=== PATIENT | male | born 1985 | race African-American/Black ===

== ENCOUNTER → 2020-11-02 18:52 | Outpatient (CLI) | payer OTHER, SELFPAY ==
--- NOTE | 2020-11-02 | DI.MRI.S_ITS ---
PROCEDURE: MR KNEE LT WO CON INDICATIONS: pain in left knee TECHNIQUE: Noncontrast sagittal PD fast spin echo and T2 fast spin echo with fat saturation, sagittal 3-D FLASH with fat saturation; coronal T1 spin echo and PD fast spin echo with fat saturation, and axial PD fast spin echo with fat saturation through the knee. COMPARISON: None. FINDINGS: Image quality: Excellent. Menisci: The medial and lateral menisci demonstrate normal morphology and internal signal. The meniscal root ligaments appear intact. Cruciate ligaments: The anterior and posterior cruciate ligaments appear intact. Medial structures: The medial collateral ligament appears intact. The semimembranosus tendon insertions and meniscocapsular junction appear intact. Visualized portions of the pes anserinus tendons appear normal. No abnormal bursal fluid. Lateral structures: The lateral collateral ligament, long and short heads of the biceps femoris tendon appear intact. The popliteus tendon appears intact. No signs of posterolateral corner injury. Iliotibial band appears normal. Anterior structures: The quadriceps and patellar tendons appear intact. A mildly congenitally shallow trochlear groove is seen with lateral patellar tilting and mild lateral patellar subluxation. The tibial tubercle-trochlear groove distance is within normal limits. There is attenuation of the medial patellofemoral ligament near its femoral attachment and a small amount of edema superficial to the medial collateral ligament. Bones and cartilage: There is trace cortical irregularity and possible edema at the anterolateral aspect of the lateral femoral condyle and the odd facet of the patella that is suspicious for trabecular bone injury related to a prior episode of transient lateral patellar dislocation. The articular cartilages in the medial compartment are intact. There is shallow cartilage fissuring in the central lateral tibial plateau with focal high-grade partial-thickness cartilage loss at the posterior weight-bearing portion of the lateral tibial plateau with mild subchondral cystic changes. Focal grade 2-3 cartilage loss is seen at the lateral aspect of the lateral femoral trochlea. Joint space: There is a moderate to large joint effusion with mild synovial hypertrophy. A moderate medial popliteal cyst is seen with intracystic debris or synovial hypertrophy. A small amount of edema adjacent to the popliteal cyst may indicate a prior rupture. IMPRESSION: 1. Subtle mild trabecular bone injury at the inferomedial portion of the patella and the anterolateral portion of the lateral femoral condyle is suspicious for a prior episode of transient lateral patellar dislocation. 2. Attenuation of the medial patellofemoral ligament near its femoral attachment with adjacent soft tissue edema is suspicious for at least high-grade tearing. 3. 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 The tibial tubercle-trochlear groove distance is within normal limits. 4. 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 5. Intact cruciate and collateral ligaments. 6. Moderate to large joint effusion with mild synovial hypertrophy. 7. Moderate medial popliteal cyst with intracystic debris or synovial hypertrophy and signs of possible prior rupture. Dictated by: José Manuel Bird M.D. on 11/03/2020 at 8:49 Approved by: José Manuel Bird M.D. on 11/03/2020 at 9:08
== END ==
PROVIDERS: Referring Provider Student in an Organized Health Care Education/Training Program; Visit Provider Student in an Organized Health Care Education/Training Program
DX: M25.562 Pain in left knee (principal); S89.82XA Other specified injuries of left lower leg, initial encounter; M25.462 Effusion, left knee; M94.262 Chondromalacia, left knee; M25.862 Other specified joint disorders, left knee; M67.262 Synovial hypertrophy, not elsewhere classified, left lower leg
CPT/HCPCS: 73721

== ENCOUNTER → 2022-08-04 10:02 | Outpatient (CLI) | payer OTHER, SELFPAY ==
--- NOTE | 2022-08-04 | DI.MRI.S_ITS ---
PROCEDURE: MR WRIST RT WO CON INDICATIONS: right wrist pain TECHNIQUE: Noncontrast coronal proton density fast spin echo and T2 fast spin echo with fat saturation; coronal 3-D gradient echo, axial T1 spin echo and T2 fast spin echo with fat saturation, sagittal T1 spin echo through the wrist. COMPARISON: None. FINDINGS: Image quality: Excellent. Bones and cartilage: The carpal bones are normally aligned. There is mild marrow edema involving dorsal periphery of distal radius near Massiel's tubercle. No discrete fracture line is identified. No other area of abnormal marrow signal. No evidence for avascular necrosis. Overlying cartilage surfaces appear normal. Carpal ligaments: There is suggestion of full-thickness rupture involving dorsal and central components of scapholunate ligament. The lunotriquetral ligament is intact. On sagittal images, the pisohamate ligament appears intact. Triangular fibrocartilage complex: The triangular fibrocartilage appears intact. The adjacent meniscal homolog appears normal in the absence of intra-articular contrast. The extensor carpi ulnaris tendon is normal in location and morphology. Tendons and soft tissues: The carpal tunnel structures appear normal, including the median nerve. The ulnar nerve appears normal within Guyon's canal. Fluid is seen distending flexor carpi radialis tendon sheath at the level of radiocarpal joint extending to the level of distal carpal row. All six extensor tendon compartments demonstrate normal morphology, without pathologic tendon sheath fluid. Moderate amount of joint effusion is seen within wrist joints. No soft tissue ganglion cysts. IMPRESSION: 1. Likely bony contusion involving dorsal aspect of distal radius with marrow edema. No fracture or dislocation. No evidence of avascular necrosis. Moderate amount of joint effusion, no gross loose bodies. 2. Full-thickness rupture involving dorsal and central components of scapholunate ligament. The lunotriquetral ligament is intact. 3. The triangular fibrocartilage complex is grossly intact. 4. Suggestion of low-grade tenosynovitis involving flexor carpi radialis tendon as above. Dictated by: Fuad Lambert M.D. on 08/06/2022 at 8:08 Approved by: Fuad Lambert M.D. on 08/06/2022 at 8:15
== END ==
PROVIDERS: PCP Student in an Organized Health Care Education/Training Program; Referring Provider Student in an Organized Health Care Education/Training Program; Visit Provider Student in an Organized Health Care Education/Training Program
DX: M25.431 Effusion, right wrist (principal); S63.391A Traumatic rupture of other ligament of right wrist, initial encounter
CPT/HCPCS: 73221

== ENCOUNTER 2022-09-27 07:52 | Day surgery (SDC) | payer OTHER, SELFPAY ==
[2022-09-21 09:42] VITALS: BMI 31.9
[2022-09-27 08:25] VITALS: BP 151/94; PULSE 69; RESP 18; TEMP 36.9; O2SAT 98; BMI 30.1
[2022-09-27] MEDS: LACTATED RINGERS 1,000 ML 42 ML IV (08:54)
--- NOTE | 2022-09-27 09:57 | PM.PREOP ---
Pre-operative Note Interval Note History & Physical reviewed/Exam performed by Physician: Yes Changes to H&P: No
[2022-09-27] MEDS: CEFAZOLIN 2 GM/100 ML PREMIX 100 ML IV (10:17)
--- NOTE | 2022-09-27 10:36 | SUR.OPER ---
Supine on padded OR bed, head on pillow, arms secured on padded arm boards at <90 degrees abduction, legs uncrossed, safety belt at thigh, tape over blanket over lower legs.
[2022-09-27] MEDS: BUPIVACAINE 0.5% (PF) 30 ML, EPINEPHrine 0.15 MG INJ (10:47)
[2022-09-27 11:48] VITALS: BP 112/67; PULSE 92; RESP 12; TEMP 36.1; O2SAT 97
--- NOTE | 2022-09-27 11:50 | PM.OP.1 ---
Operative Date/Time/Diagnoses Date of procedure: 09/27/22 Time of procedure: 10:30 Pre-op diagnosis: Right scapholunate ligament rupture Post-op diagnosis: same Procedure & Clinicians Procedure: Scapholunate ligament reconstruction Same procedure as scheduled: Yes Indications: Scapholunate ligament rupture Surgeon: Дмитрий Camacho Click Yes if Unassisted: Yes Anesthesia Type: General Operative Notes Findings: Complete rupture of the scapholunate ligament but no sign of any arthritic changes at the radiocarpal joint no sign of any DISI deformity or carpal collapse. Closure Type: primary Applied: implant(s) (Three Arthrex swivel locks) Estimated Blood Loss (mL): 5 Tourniquet time (min): 64 Procedure in detail: On date of service, patient was met in the holding area where his operative site was signed and witnessed by the OR staff. The surgery is once again discussed with the patient in remaining questions or concerns he had were answered fully. Patient was taken back to the operating theater and placed on the operating table in a supine position. Great care was taken to ensure that all bony prominences were appropriately padded. A well-padded tourniquet was placed up along the upper extremity. Time-out was performed verifying patient's name, procedure, and operative site. The limb was prepped and draped in the normal sterile fashion. An Esmarch was used to exsanguinate the limb the tourniquet was turned up to 250 mm of mercury. Longitudinal incision was made. The incision was ulnar to the Massiel's tubercle. It was centered over the radiocarpal joint. Fifteen blade was used to incise through skin and fascial tissue. Sharp dissection was continued with a 15 blade until the extensor mechanism was identified. Branches of the superficial radial nerve were identified and protected as well as branches coming off ulnarly. Once we had the extensor mechanism identified and was split allowing a release of the EPL tendon. This was also done ulnarly opening up 4th extensor compartment and then done radially opening up the 2nd extensor compartment. This allowed us to retract the extensor tendons. We next took a small strip of tendon tissue from the ECR be which was then whip stitched and then set aside to be used later. Next, the radiocarpal joint was opened preserving the carpal ligaments. This gave us good visualization of the scapholunate interval. There was a complete rupture to the scapholunate ligament. But no sign of any radiocarpal arthritic process. K-wire was placed in to the scaphoid and 1 into the lunate and the scapholunate interval was reduced. These 2 K-wires were then held together to close down any diastasis. Another K-wire was placed between the scaphoid and the capitate to keep it from falling back into flexion. Next, 3 guidewires were placed 1 in the lunate and 2 in the scaphoid 1 by the scapholunate interval and then 1 very distally. C-arm used to verify reduction of the scapholunate interval as well as guidewire positioning. Once we were satisfied with the positioning cannulated drill was used to drill over the 3 guidewires. The bony hole tunnels were then copiously irrigated removing any remaining tissue. We then turned our attention back to our tendon graft. This plus suture tape was tenodesed into the 1st hole in the scaphoid. Then under tension this was then placed into the 2nd hole into the lunate going across the scapholunate interval 18 OD seen the attendant as well as the graft providing a solid repair of the scapholunate interval. Next, the tendon and suture material were then brought up to the distal hole into the scaphoid and retain noticed there to once again help keep the scaphoid from falling into flexion. C-arm was brought in to verify maintenance of reduction. The 2 reducing K-wires were removed and there was no gapping at the scapholunate interval once those K-wires were removed. We were able to flex and extend the wrist with no abnormal motion of the scapholunate interval been no sign of any diastasis. Good signs of a solid repair of the scapholunate interval. The wound was then copiously irrigated. The capsule was closed and repaired using 3-0 FiberWire. The extensor mechanism was closed with Vicryl recreating the 4th extensor compartment as well as the 3rd and 2nd extensor compartments. The rest of the wound was closed in layered fashion. Patient's hand and arm was cleaned dried and dressed. Patient was placed into a splint and taken to the PACU in stable condition. Complications: none Post-operative Condition: stable Disposition: PACU Plan for aftercare: Patient will follow our postoperative protocol for scapholunate ligament reconstruction
[2022-09-27 11:52] VITALS: BP 112/77; PULSE 89; RESP 15; O2SAT 98
[2022-09-27 11:57] VITALS: BP 120/78; PULSE 102; RESP 15; O2SAT 98
[2022-09-27] MEDS: OXYCODONE IR 5 MG TABLET PO (12:00)
[2022-09-27 12:03] VITALS: BP 134/90; PULSE 93; RESP 12; O2SAT 99
[2022-09-27 12:10] VITALS: BP 126/94; PULSE 92; RESP 16; O2SAT 98
== END 2022-09-27 12:31 | disposition home or self-care (01) ==
PROVIDERS: PCP Student in an Organized Health Care Education/Training Program; Referring Provider Orthopaedic Surgery; Visit Provider Orthopaedic Surgery
PROC: (CPT 25320; principal; 2022-09-27 09:45)
DX: S63.8X1A Sprain of other part of right wrist and hand, initial encounter (principal); W01.0XXA Fall on same level from slipping, tripping and stumbling without subsequent striking against object, initial encounter; Y93.66 Activity, soccer
CPT/HCPCS: 25320; C1713; J0171; J0690; J1100; J2250; J2405; J2704; J3010